=== PATIENT | female | born 1985 | race Caucasian/White ===

== ENCOUNTER 2020-11-10 08:44 | Emergency (ER) | payer OTHER, SELFPAY ==
[2020-11-10] MEDS ORDERED: Ibuprofen 200 MG TAB ONE (09:11)
--- NOTE | 2020-11-10 14:10 | RAD ---
LEFT FOOT THREE VIEWS: 11/10/20 No fracture or acute bony abnormality was seen. The metatarsals appear intact. A large calcaneal spur was noted. IMPRESSION: No acute finding. POS: HOME
== END 2020-11-10 09:50 | disposition home or self-care (01) ==
LOC: BURERS 08:44
DX: S93.602A Unspecified sprain of left foot, initial encounter (principal); K21.9 Gastro-esophageal reflux disease without esophagitis; F17.210 Nicotine dependence, cigarettes, uncomplicated; Z79.899 Other long term (current) drug therapy; W18.40XA Slipping, tripping and stumbling without falling, unspecified, initial encounter
CPT/HCPCS: 99406

== ENCOUNTER 2020-11-27 17:59 | Emergency (ER) | payer SELFPAY ==
[~2020-11-27 17:59] MED LIST: Iopamidol 370 76% 100 ML VIAL ONE
[2020-11-27 19:00] LABS: #Basophils 0.1 thou/uL (0.0-0.2); #Eosinphils 0.2 thou/uL (0.0-0.7); #Monocytes 0.8 thou/uL (0.11-0.59); #Neutrophils 9.7 thou/uL (1.40-6.50); %Basophils 0.7 % (0.0-1.0); %Eosinophils 1.6 % (0.0-10.0); %Lymphocytes 27.2 % (21.0-51.0); %Monocytes 5.1 % (0.0-10.0); %Neutrophils 65.4 % (42.0-75.0); Hemoglobin 13.5 g/dL (12.0-16.0); Mean Corpuscular HGB CONC 32.3 g/dL (32.0-36.0); Mean Corpuscular Hemoglobin 28.7 pg (27.0-31.0); Mean Corpuscular Volume 88.9 fL (78.0-98.0); Mean Platelet Volume 9.4 fL (7.4-10.4); Platelet Count 214 thou/uL (130-400); RBC Distribution Width 12.8 % (11.5-14.5); Red Blood Cell (RBC) Count 4.71 mill/uL (4.20-5.40); White Blood Cell (WBC) Count 14.8 thou/uL (4.8-10.8)
[2020-11-27 19:07] LABS: BHCG - Serum Negative (NEGATIVE); Pregs Control Background? CLEAR/WHITE (CLR/WHITE); Pregs Control Bar Appear? YES (CONTROL BAR)
[2020-11-27 19:14] LABS: ALT (SGPT) 24 U/L (8-55); AST (SGOT) 12 U/L (5-34); Alkaline Phosphatase 85 U/L (40-110); Anion Gap 15 mmol/L (10-20); BUN (Urea Nitrogen) 10 mg/dL (7.0-18.7); Bilirubin, Total 0.2 mg/dL (0.2-1.2); Calc. Creatinine Clearance 0 mL/min (70-130); Carbon Dioxide 25 mmol/L (22-29); Chloride 107 mmol/L (98-107); Globulin 2.9 g/dL (2.4-3.5); Glucose 106 mg/dL (70-105); Lipase 21 U/L (8-78); Potassium 3.9 mmol/L (3.5-5.1); Protein, Total 6.9 g/dL (6.0-8.3); Sodium 143 mmol/L (136-145)
[2020-11-27 19:19] LABS: Bilirubin Negative (Negative); Blood, Urine Trace (Negative); Clarity Clear (Clear); Glucose, Urine (Dipstick) Negative (Negative); Ketone, Urine Trace mg/dL (Negative); Leukocyte Small (Negative); Nitrite Negative (Negative); Protein, Urine (Dipstick) Negative (Neg-Trace); Specific Gravity, Urine 1.025 (1.005-1.030); Urobilinogen 0.2 mg/dL (Less than 2)
[2020-11-27 19:26] LABS: Bacteria/HPF Rare-Few HPF (None Seen); RBC/HPF 0-3 HPF (0-3); Squamous Epithelial 0-3 HPF (0-3)
[2020-11-27] MEDS ORDERED: Ketorolac Tromethamine 30 MG/ML VIAL ONE (20:39)
--- NOTE | 2020-11-27 22:00 | CT ---
CT ABDOMEN AND PELVIS WITH CONTRAST: Date: 11-27-2020 CT of the abdomen and pelvis was done with IV contrast. FINDINGS: The lung bases are clear. The liver, spleen, pancreas, adrenal glands, kidneys and abdominal aorta sh owed no acute findings. There has been a prior cholecystectomy. CT of the pelvis shows no pelvic masses, fluid collections, or inflammatory changes. A tiny 2 mm calc ification deep in the pelvis on the right side is near the right ureter, but I could not establish fo r sure that it is within it. There is absolutely no ureteral dilation or hydronephrosis. Thus, I king ot confirm this as being a calculus at this time, but the findings should be correlated with any lab (such as hematuria) or right flank pain. The pelvis was otherwise unremarkable. The bowel was unremar kable showing no dilation or wall thickening. No free air or free fluid was seen. IMPRESSION: No definite acute abdominal or pelvic findings. Very tiny calcification deep in the right lower pelvi s, but without any ureteral dilatation. See comments above. Findings discussed with Dr. Peter at 2030 on 11-27-2020. POS: HOME
== END 2020-11-27 20:50 | disposition home or self-care (01) ==
LOC: BURERS 17:59
DX: R10.84 Generalized abdominal pain (principal); D72.829 Elevated white blood cell count, unspecified; N32.89 Other specified disorders of bladder; K21.9 Gastro-esophageal reflux disease without esophagitis; F17.210 Nicotine dependence, cigarettes, uncomplicated
CPT/HCPCS: 36415; 74177; 80053; 81003; 81015; 83690; 84703; 85025; 96361; 96374; J1885; Q9967